=== PATIENT | female | born 1980 | race Caucasian/White ===

== ENCOUNTER 2016-10-23 10:49 | Outpatient (CLI) | payer OTHER ==
[~2016-10-23] VITALS: Ht 172.7 cm; Wt 80.9 kg
[2016-10-23 12:00] VITALS: BP 92/61; PULSE 82
[2016-10-23 12:06] VITALS: BP 110/76; PULSE 74; TEMP 98.4
[2016-10-23 13:00] VITALS: BP 96/55; PULSE 85
[2016-10-23 14:00] VITALS: BP 92/56; PULSE 83
[2016-10-23 15:00] VITALS: BP 99/64; PULSE 80
== END 2016-10-23 15:15 | disposition home or self-care (01) ==
LOC: LDRO 10:49
DX: O09.513 Supervision of elderly primigravida, third trimester (principal); Z3A.36 36 weeks gestation of pregnancy

== ENCOUNTER 2016-11-13 06:25 | Inpatient (IN) | payer OTHER ==
[2016-11-13] VITALS (40 sets, daily range): BP systolic 101–172; BP diastolic 56–101; PULSE 71–106; TEMP 97.6–98.3
[~2016-11-13] VITALS: Ht 172.7 cm; Wt 81.4 kg
[2016-11-13 14:37] LABS: BASO % 0.2 % (0.0-2.0); EOS % 0.6 % (0-4.0); GRAN # 4.2 (1.4-6.5); GRAN % 66.5 % (42.2-75.2); LYMPH # 1.6 (1.2-3.4); LYMPH % 25.2 % (20.0-51.0); MEAN CELL VOLUME 78 fl (80.0-100.0); MEAN CORPUSCULAR HGB CONC 32 g/dl (33.0-37.0); MONO # 0.5 (0.1-0.6); MONO % 7.2 % (1.7-9.3); PLATELET COUNT 190 K/mm3 (130-400); REDCELL DISTRIBUTION WIDTH-CV 13.3 % (11.5-14.5); WHITE BLOOD COUNT 6.3 K/mm3 (4.8-10.8)
[2016-11-13 14:39] LABS: MEAN CORPUSCULAR HEMOGLOBIN 25 pg (27.0-31.0)
[2016-11-14] VITALS (8 sets, daily range): BP systolic 109–138; BP diastolic 65–84; PULSE 78–91; TEMP 97.3–98.3
[2016-11-14 05:28] LABS: HEMATOCRIT 23.2 % (37.0-47.0); HEMOGLOBIN 7.5 g/dl (12.5-16.0)
[2016-11-15 06:36] LABS: HEMATOCRIT 20.6 % (37.0-47.0); HEMOGLOBIN 6.7 g/dl (12.5-16.0)
[2016-11-15 07:07] VITALS: BP 108/74; PULSE 78; TEMP 97.6
[2016-11-15] MEDS ORDERED: FERROUS SU325 MG/TAB PO (08:53)
[2016-11-15] MEDS ORDERED: IBU600 MG PO (08:53)
== END 2016-11-15 12:30 | disposition home or self-care (01) | DRG 775 ==
LOC: OB 06:25 → LDR 06:28 → OB 13:17
PROVIDERS: Obstetrics & Gynecology
PROC: 10E0XZZ Delivery of Products of Conception, External Approach (ICD-10-PCS; principal; 2016-11-13)
PROC: 0KQM0ZZ Repair Perineum Muscle, Open Approach (ICD-10-PCS; 2016-11-13)
DX: O70.1 Second degree perineal laceration during delivery (principal); Z37.0 Single live birth; Z3A.39 39 weeks gestation of pregnancy
CPT/HCPCS: J2590; J7120

== ENCOUNTER → 2016-11-27 | Outpatient (CLI) | payer OTHER ==
[~2016-11-27] MED LIST: FERROUS SU325 MG/TAB PO; IBU600 MG PO
== END ==
LOC: LAC 11:07
DX: Z39.1 Encounter for care and examination of lactating mother (principal); Z71.89 Other specified counseling

== ENCOUNTER → 2016-12-04 | Outpatient (CLI) | payer OTHER | LOC: LAC 10:54 | DX: Z39.1 Encounter for care and examination of lactating mother (principal); Z71.89 Other specified counseling ==

== ENCOUNTER → 2016-12-25 | Outpatient (CLI) | payer OTHER | LOC: OLC 11:33 | DX: Z39.1 Encounter for care and examination of lactating mother (principal); Z71.89 Other specified counseling ==

== ENCOUNTER → 2017-06-18 | Outpatient (CLI) | payer OTHER | LOC: COL.RAD 16:21 | DX: M25.532 Pain in left wrist (principal); M79.602 Pain in left arm; Z91.81 History of falling ==

== ENCOUNTER → 2018-02-06 | Outpatient (CLI) | payer OTHER | LOC: MC.RAD 10:29 | DX: Z12.31 Encounter for screening mammogram for malignant neoplasm of breast (principal); Z80.3 Family history of malignant neoplasm of breast ==